=== PATIENT | male | born 1990 | race Caucasian/White ===

== ENCOUNTER 2016-09-29 18:25 | Emergency (ER) | payer OTHER ==
[~2016-09-29] VITALS: Ht 170.2 cm; Wt 80.0 kg
[~2016-09-29 18:25] MED LIST: ADDE30XR PO; ALPR2TAB3 PO
[2016-09-29 18:27] VITALS: BP 147/97; PULSE 107; RESP 14; TEMP 98.7; O2SAT 100
[2016-09-29] MEDS ORDERED: ALPR1TAB3 PO (20:45)
[2016-09-29 20:52] VITALS: BP 149/88; PULSE 87; RESP 14; O2SAT 100
--- NOTE | 2016-09-29 20:56 | PD ---
HPI Chief Complaint: Eye Problems/Injury Time Seen by Provider: 20:44 Travel History International Travel<30 days: No Contact w/Intl Traveler<30days: No Traveled to known affect area: No History of Present Illness HPI This is a 26 year old male who presents to the emergency department having had about 4 days of burning, swelling and some redness of his right eye, moderate severity. He went to [facility] and he was treated for conjunctivitis and he applied polymixin/trimethoprim eye drops and he saw his primary care physician because his symptoms aren't improving. The physician told him he agreed that it was likely conjunctivitis, but if he wasn't improving he should come to the emergency department. He did start him on amoxicillin which he started yesterday. He says over the past 24 hours the eye has become more painful, the eye is swollen shut and he is having trouble making out anything except lights and colors. (-) fevers or chills PFSH Past Medical History ADD: Yes Anxiety: Yes Diminished Hearing: No Gastrointestinal Disorders: Yes (IBS) Immunizations Current: Yes Tetanus Vaccination: < 5 Years Influenza Vaccination: No Past Surgical History Tympanostomy Tube: Yes Social History Alcohol Use: Yes Tobacco Use: No Substance Use: Yes Allergies-Medications (Allergen,Severity, Reaction): Coded Allergies: No Known Allergies (Verified , 10/23/14) Reported Meds & Prescriptions Reported Meds & Active Scripts Active Reported Alprazolam 1 Mg Tab 1 Mg PO Q6H PRN Adderall XR 30 mg (Amphetamine/Dextroamphetamine) 30 Mg Cap 1 Cap PO DAILY Alprazolam 2 Mg Tab 1 Mg PO Q6H PRN Review of Systems Except as stated in HPI: all other systems reviewed are Neg Physical Exam Narrative GENERAL:Well appearing, no acute distress SKIN: Warm and dry. HEAD: Atraumatic. Normocephalic. EYES: Pupils equal and round. Swelling of the eyelid and erythema of the preseptal soft tissue. Some pain with extraocular movements. Diffuse conjunctival injection with erythema and injection of the lids. No foreign body appreciated. No purulent discharge. Extraocular pressure was 12 in the left eye and 18 in the right eye. Fluoroscein exam was normal with no uptake. ENT: Moist mucous membranes. Tender lymph node preauricular on the right. NECK: Trachea midline. CARDIOVASCULAR: Regular rate and rhythm. No murmur appreciated. RESPIRATORY: Clear to auscultation. Breath sounds equal bilaterally. GASTROINTESTINAL: Abdomen soft, non-tender, nondistended. MUSCULOSKELETAL: No obvious deformities. NEUROLOGICAL: Awake and alert. No obvious cranial nerve deficits. Moving all extremities. PSYCHIATRIC: Appropriate mood and affect; insight and judgment normal. Data Data Last Documented VS Vital Signs Date Time Temp Pulse Resp B/P Pulse Ox O2 Delivery O2 Flow Rate FiO2 09/29/16 20:52 87 14 149/88 100 Room Air 09/29/16 18:27 98.7 Orders Proparacaine 0.5% Opth Soln (Alcaine 0.5 (09/29/16 21:00) Complete Blood Count With Diff (09/29/16 21:19) Basic Metabolic Panel (Bmp) (09/29/16 21:19) Ct Facial Bones W Iv Contrast (09/29/16 ) Morphine Inj (Morphine Inj) (09/29/16 21:30) Iohexol 350 Inj (Omnipaque 350 Inj) (09/29/16 21:47) Morphine Inj (Morphine Inj) (09/29/16 22:45) Labs Laboratory Tests Test 09/29/16 21:20 White Blood Count 7.4 TH/MM3 Red Blood Count 5.34 MIL/MM3 Hemoglobin 16.9 GM/DL Hematocrit 48.9 % Mean Corpuscular Volume 91.5 FL Mean Corpuscular Hemoglobin 31.6 PG Mean Corpuscular Hemoglobin 34.5 % Concent Red Cell Distribution Width 13.1 % Platelet Count 197 TH/MM3 Mean Platelet Volume 7.6 FL Neutrophils (%) (Auto) 64.4 % Lymphocytes (%) (Auto) 26.3 % Monocytes (%) (Auto) 8.5 % Eosinophils (%) (Auto) 0.5 % Basophils (%) (Auto) 0.3 % Neutrophils # (Auto) 4.7 TH/MM3 Lymphocytes # (Auto) 1.9 TH/MM3 Monocytes # (Auto) 0.6 TH/MM3 Eosinophils # (Auto) 0.0 TH/MM3 Basophils # (Auto) 0.0 TH/MM3 CBC Comment DIFF FINAL Differential Comment Sodium Level 138 MEQ/L Potassium Level 3.8 MEQ/L Chloride Level 100 MEQ/L Carbon Dioxide Level 31.2 MEQ/L Anion Gap 7 MEQ/L Blood Urea Nitrogen 16 MG/DL Creatinine 1.39 MG/DL Estimat Glomerular Filtration 61 ML/MIN Rate Random Glucose 87 MG/DL Calcium Level 9.0 MG/DL MDM Medical Decision Making Medical Screen Exam Complete: Yes Emergency Medical Condition: Yes Interpretation(s) Mild tachycardia CT face: Soft tissue swelling in the right orbital preseptal area Differential Diagnosis Viral conjunctivitis, bacterial conjunctivitis, uveitis, scleritis, preseptal cellulitis, orbital cellulitis Narrative Course This is a 26-year-old male who presents to the emergency department with pain in his right eye and blurry vision that is been going on for 4 days, worsening despite topical and oral antibiotic therapy. Given pain with extraocular movements in his visual complaints, I obtained a CT which is negative for orbital cellulitis. Patient does have poor vision in the right eye than in the left and has diffuse injection concerning for possible uveitis. I think patient requires urgent outpatient ophthalmology consultation. Diagnosis Primary Impression: Eye pain Qualified Code: H57.11 - Eye pain, right Referrals: Charlene Washington MD Additional Instructions: If you develop fevers, chills, more swelling in your face, blurry vision or worsening pain return to the emergency department. Follow up with Dr. Washington tomorrow without fail. Med/Other Pt SpecificInfo: No Change to Meds Disposition: 01 DISCHARGE HOME Condition: Stable Frida Heaton MD Sep 29, 2016 20:56
[2016-09-29] MEDS ORDERED: PROPARACAINE HCL 0.5% OPHT SOLN 15 ML BTL RIGHT EYE ONE (21:00)
[2016-09-29] MEDS ORDERED: MORPHINE SULFATE 8 MG/ML INJ IV PUSH ONE (21:30)
[2016-09-29] MEDS ORDERED: IOHEXOL 350 MG/ML 10 ML VIAL (for RAD DIAG) IV ONE (21:47)
--- NOTE | 2016-09-29 22:07 | RADRPT ---
EXAM DATE/TIME: 09/29/2016 21:39 [facility] COMPARISON: No previous studies available for comparison. INDICATIONS : Right orbital swelling for four days. Evaluate for cellulitis. IV CONTRAST: 75 cc Omnipaque 350 (iohexol) IV RADIATION DOSE: 10.45 CTDIvol (mGy) MEDICAL HISTORY : None SURGICAL HISTORY : None. ENCOUNTER: Initial ACUITY: 4 - 6 days PAIN SCALE: 4/10 LOCATION: Right orbit TECHNIQUE: Volumetric scanning of the facial bones was performed. Using automated exposure control and adjustme nt of the mA and/or kV according to patient size, radiation dose was kept as low as reasonably achiev able to obtain optimal diagnostic quality images. FINDINGS: ORBITS: The orbital and infraorbital osseous structures are intact. There some mild soft tissue swelling in t he preseptal right orbit. No post septal inflammatory changes or retro-bulbar abnormalities are ident ified. NASAL BONE: The nasal bone and maxillary spine are intact ZYGOMATIC ARCHES: Symmetric without evidence of fracture. SINUSES: The maxillary, ethmoid and frontal sinuses are intact. No air-fluid levels seen. NASAL CAVITY: The nasal septum is intact and midline. The lacrimal ducts are intact. SOFT TISSUES: No radiopaque foreign bodies seen. No soft-tissue swelling is seen. INTRACRANIAL: No intracranial air seen. CRIBIFORM PLATE: Grossly intact. CONCLUSION: 1. Mild soft tissue swelling in the right orbit pre-septal. This is most characteristic of a mild maciej lulitis. No post septal retrobulbar abnormalities. No abnormal enhancing lesions. Mark Ray MD on September 29, 2016 at 22:02 Board Certified Radiologist. This report was verified electronically.
[2016-09-29 22:19] LABS: AUTOMATED NEUTROPHIL # 4.7 TH/MM3 (1.8-7.7); BASOPHIL % 0.3 % (0.0-2.0); EOSINOPHIL % 0.5 % (0.0-4.0); HEMATOCRIT 48.9 % (39.0-51.0); HEMO FLAGS DIFF FINAL; LYMPH % 26.3 % (9.0-44.0); LYMPHOCYTE # 1.9 TH/MM3 (1.0-4.8); MEAN CELL VOLUME 91.5 FL (80.0-100.0); MEAN CORPUSCULAR HEMOGLOBIN 31.6 PG (27.0-34.0); MEAN CORPUSCULAR HGB CONC 34.5 % (32.0-36.0); MONO % 8.5 % (0.0-8.0); NEUT % 64.4 % (16.0-70.0); PLATELET COUNT 197 TH/MM3 (150-450); RED BLOOD COUNT 5.34 MIL/MM3 (4.50-5.90); RED CELL DISTRIBUTION WIDTH 13.1 % (11.6-17.2); WHITE BLOOD COUNT 7.4 TH/MM3 (4.0-11.0)
[2016-09-29 22:39] LABS: BICARBONATE 31.2 MEQ/L (21.0-32.0)
[2016-09-29 22:40] LABS: POTASSIUM 3.8 MEQ/L (3.5-5.1)
[2016-09-29] MEDS ORDERED: MORPHINE SULFATE 4 MG/ML INJ IV PUSH ONE (22:45)
[2016-09-29] MEDS ORDERED: HYDR-3533 PO (22:53)
[2016-09-29] MEDS ORDERED: VIGA0.5D RIGHT EYE (22:53)
[2016-09-29 22:56] VITALS: BP 131/84; PULSE 90; RESP 14; O2SAT 100
[2016-09-29] MEDS ORDERED: ONDANSETRON HCL 4 MG/2 ML VIAL IV ONE (23:00)
[2016-09-30] MEDS ORDERED: AUGM875T PO (10:37)
[2016-09-30] MEDS ORDERED: TRIMSOL RIGHT EYE (10:37)
[2016-10-04] MEDS ORDERED: PRED1SUS EACH EYE (11:11)
[2016-10-04] MEDS ORDERED: TRIMSOL EACH EYE (11:11)
[2016-10-11] MEDS ORDERED: TRIMSOL EACH EYE (09:25)
== END 2016-09-29 23:21 | disposition home or self-care (01) ==
LOC: NEPC 18:25
DX: H57.11 Ocular pain, right eye (principal)
CPT/HCPCS: 70487; 80048; 85025; 96374; 96375; 96376; 99284; J2270; J2405; Q9967

== ENCOUNTER 2017-01-14 01:07 | Emergency (ER) | payer OTHER ==
[~2017-01-14] VITALS: Ht 170.2 cm; Wt 78.0 kg
[~2017-01-14 01:07] MED LIST changes: -ADDE30XR PO; +ALPR1TAB3 PO; -ALPR2TAB3 PO; +AUGM875T PO; +HYDR-3533 PO; +PRED1SUS EACH EYE; +TRIMSOL EACH EYE
[2017-01-14 01:08] VITALS: BP 133/87; PULSE 82; RESP 20; TEMP 97.7; O2SAT 100
[2017-01-14] MEDS ORDERED: MORPHINE SULFATE 8 MG/ML INJ IV PUSH ONE (02:00)
[2017-01-14] MEDS ORDERED: ONDANSETRON HCL 4 MG/2 ML VIAL ONE (02:10)
[2017-01-14] MEDS ORDERED: ONDANSETRON HCL 4 MG/2 ML VIAL IV PUSH ONE (02:30)
--- NOTE | 2017-01-14 02:57 | RADRPT ---
EXAM DATE/TIME: 01/14/2017 02:23 [facility] COMPARISON: No previous studies available for comparison. INDICATIONS : Testicle pain. MEDICAL HISTORY : Hypercholesterolemia. Tympanostomy tube. IBS. Testicle pain. SURGICAL HISTORY : None. ENCOUNTER: Initial ACUITY: 2 days PAIN SCORE: 6/10 LOCATION: Bilateral testicles. MEASUREMENTS: RIGHT TESTICLE: 3.7 x 2.3 x 4.6cm LEFT TESTICLE: 3.2 x 2.3 x 3.7 cm FINDINGS: RIGHT TESTICLE: Homogeneous echotexture without intra or extratesticular mass. Blood flow is symmetric and within no rmal limits. No varicocele. Epididymis is within normal limits. LEFT TESTICLE: Homogeneous echotexture without intra or extratesticular mass. Blood flow is symmetric and within no rmal limits. No hydrocele or varicocele. Epididymis is within normal limits. SCROTUM: Within normal limits. CONCLUSION: Normal examination except for small hydrocele on the right. There is intact flow to both testes. Jose M Arango MD on January 14, 2017 at 2:55 Board Certified Radiologist. This report was verified electronically.
[2017-01-14 03:07] LABS: BLOOD, URINE NEG (NEG); GLUCOSE,URINE NEG (NEG); KETONE, URINE NEG (NEG); NITRITE,URINE NEG (NEG); PH, URINE 5.5 (5.0-8.5); URINE COLOR LIGHT-YELLOW (YELLW/STRAW)
[2017-01-14 03:24] LABS: COMMENT (UR) CULT NOT INDICATED; CULTURE IF INDICATED CULT NOT INDICATED
[2017-01-14] MEDS ORDERED: IBUP-232 PO (03:36)
--- NOTE | 2017-01-14 03:36 | PD ---
HPI Chief Complaint: Complaint Time Seen by Provider: 01:27 Travel History International Travel<30 days: No Contact w/Intl Traveler<30days: No Traveled to known affect area: No History of Present Illness HPI 26yo M with PMH of anxiety presents to the ED with c/o right testicular pain today. Started at 3pm and then went away. Then started 3 hours prior to arrival. Pain is sharp, radiates from right testicle to right groin. Had so nausea. Denies any fever, vomiting, chest pain, sob, abdominal pain, focal weakness or numbness. PFSH Past Medical History ADD: Yes Anxiety: Yes High Cholesterol: Yes Diminished Hearing: No Gastrointestinal Disorders: Yes (IBS) Immunizations Current: Yes Tetanus Vaccination: > 5 Years Influenza Vaccination: No Past Surgical History Tympanostomy Tube: Yes Social History Alcohol Use: Yes Tobacco Use: No Substance Use: Yes Allergies-Medications (Allergen,Severity, Reaction): Coded Allergies: No Known Allergies (Verified , 01/14/17) Reported Meds & Prescriptions Reported Meds & Active Scripts Active Reported Alprazolam 1 Mg Tab 1 Mg PO Q6H PRN Review of Systems Except as stated in HPI: all other systems reviewed are Neg Physical Exam Narrative GENERAL: 26yo M in moderate distress. SKIN: Focused skin assessment warm/dry. HEAD: Atraumatic. Normocephalic. CARDIOVASCULAR: Regular rate and rhythm. No murmur appreciated. RESPIRATORY: No accessory muscle use. Clear to auscultation. Breath sounds equal bilaterally. GASTROINTESTINAL: Abdomen soft, non-tender, nondistended. No rebound tenderness or guarding. : +TTP right testicle posterior aspect. No elevation of right testicle and no edema. No inguinal hernia palpated. No rash or penile discharge. MUSCULOSKELETAL: No obvious deformities. No clubbing. No cyanosis. No edema. NEUROLOGICAL: Awake and alert. No obvious cranial nerve deficits. Motor grossly within normal limits. Normal speech. PSYCHIATRIC: Appropriate mood and affect; insight and judgment normal.2 Data Data Last Documented VS Vital Signs Date Time Temp Pulse Resp B/P Pulse Ox O2 Delivery O2 Flow Rate FiO2 01/14/17 01:08 97.7 82 20 133/87 100 Room Air Orders Us Testicles W Doppler (01/14/17 ) Morphine Inj (Morphine Inj) (01/14/17 02:00) Urinalysis - C+S If Indicated (01/14/17 01:58) Ondansetron Inj (Zofran Inj) (01/14/17 02:10) Ondansetron Inj (Zofran Inj) (01/14/17 02:30) Labs Laboratory Tests Test 01/14/17 02:50 Urine Color LIGHT-YELLOW Urine Turbidity CLEAR Urine pH 5.5 Urine Specific [place] 1.013 Urine Protein NEG mg/dL Urine Glucose (UA) NEG mg/dL Urine Ketones NEG mg/dL Urine Occult Blood NEG Urine Nitrite NEG Urine Bilirubin NEG Urine Urobilinogen LESS THAN 2.0 MG/DL Urine Leukocyte Esterase NEG Urine RBC LESS THAN 1 /hpf Urine WBC 1 /hpf Microscopic Urinalysis Comment CULT NOT INDICATED MDM Medical Decision Making Medical Screen Exam Complete: Yes Emergency Medical Condition: Yes Interpretation(s) Last Impressions Scrotum Ultrasound 01/14/17 0000 Signed Impressions: Service Date/Time: Saturday, January 14, 2017 02:23 - CONCLUSION: Normal examination except for small hydrocele on the right. There is intact flow to both testes. Jose M Arango MD Differential Diagnosis Testicular torsion vs. epididymitis vs. UTI vs. urethritis Narrative Course 26yo M with sudden onset right testicular pain. US showed normal examination except for small hydrocele on right. Intact flow to both testes. Pt was given zofran and morphine and pain has improved. VS stable. Return precautions given. Diagnosis Primary Impression: Right testicular pain Patient Instructions: General Instructions Departure Forms: Tests/Procedures Additional Instructions: Please follow up with your PMD in 3-7 days. Return to the ED if symptoms recur or worsen. Med/Other Pt SpecificInfo: Prescription(s) given Scripts Ibuprofen 600 Mg [id number] Mg PO Q8H PRN (PAIN) #20 TAB Ref 0 Prov:Kayli Winston DO 01/14/17 Disposition: 01 DISCHARGE HOME Condition: Stable Kayli Winston January 14, 2017 03:36
== END 2017-01-14 03:50 | disposition home or self-care (01) ==
LOC: NEPE 01:07
DX: N50.811 Right testicular pain (principal); E78.00 Pure hypercholesterolemia, unspecified; K58.9 Irritable bowel syndrome, unspecified
CPT/HCPCS: 76870; 81001; 93975; 96374; 96375; 99285; J2270; J2405

== ENCOUNTER 2017-03-18 20:58 | Inpatient (IN) | payer OTHER ==
[~2017-03-18] VITALS: Ht 170.2 cm; Wt 75.0 kg
[~2017-03-18 20:58] MED LIST changes: -AUGM875T PO; -HYDR-3533 PO; +IBUP-232 PO; -PRED1SUS EACH EYE; -TRIMSOL EACH EYE
--- NOTE | 2017-03-18 21:33 | PD ---
HPI Chief Complaint: Suicidal Ideation Time Seen by Provider: 21:12 Travel History International Travel<30 days: No Contact w/Intl Traveler<30days: No History of Present Illness HPI Patient is a 26 year old male presents to the ER for evaluation of depressed mood, difficulty starting his day, polysomnia and suicidal ideation. Patient states he's "at the end of my rope" and "i was thinking about shooting myself in the head today". Patient states there are guns in the house. Arrives with his and child. States things have been very rough for him the past few weeks. Denies self injury. Denies any physical complaints, denies any chest pain, SOB, Abdominal pain, N/V/D, constipation. States is followed by Dr. Ulloa and has been prescribed adderall for ADD and takes xanax by prescription for anxiety. PFSH Past Medical History ADD: Yes Anxiety: Yes High Cholesterol: Yes Diminished Hearing: No Gastrointestinal Disorders: Yes (IBS) Immunizations Current: Yes Past Surgical History Tympanostomy Tube: Yes Social History Alcohol Use: Yes Tobacco Use: No Substance Use: Yes Allergies-Medications (Allergen,Severity, Reaction): Coded Allergies: No Known Allergies (Verified , 03/18/17) Reported Meds & Prescriptions Reported Meds & Active Scripts Active Reported Adderall (Amphetamine-Dextroamphetamine) 30 Mg Tab 30 Mg PO DAILY Avoid late evening doses. Space doses at least 4 to 6 hours if more than once/day dosing. Alprazolam 1 Mg Tab 1 Mg PO Q6H PRN Review of Systems Except as stated in HPI: all other systems reviewed are Neg Physical Exam Narrative GENERAL: WD/WN appears depressed, crying during exam. SKIN: Warm and dry. HEAD: Atraumatic. Normocephalic. EYES: Pupils equal and round. No scleral icterus. No injection or drainage. ENT: No nasal bleeding or discharge. Mucous membranes pink and moist. NECK: Trachea midline. No JVD. CARDIOVASCULAR: Regular rate and rhythm. RESPIRATORY: No accessory muscle use. Clear to auscultation. Breath sounds equal bilaterally. GASTROINTESTINAL: Abdomen soft, non-tender, nondistended. Hepatic and splenic margins not palpable. MUSCULOSKELETAL: Extremities without clubbing, cyanosis, or edema. No obvious deformities. NEUROLOGICAL: Awake and alert. No obvious cranial nerve deficits. Motor grossly within normal limits. Five out of 5 muscle strength in the arms and legs. Normal speech. PSYCHIATRIC: Endorses SI with planning. Endorses depressed mood and is certainly depressed affect. Denies HI and AVH. Data Data Last Documented VS Vital Signs Date Time Temp Pulse Resp B/P Pulse Ox O2 Delivery O2 Flow Rate FiO2 03/18/17 21:57 16 03/18/17 21:56 98.2 108 140/82 99 Orders Complete Blood Count With Diff (03/18/17 21:12) Comprehensive Metabolic Panel (03/18/17 21:12) Psych Screen (03/18/17 21:12) Drug Screen, Random Urine (03/18/17 21:12) Alcohol (Ethanol) (03/18/17 21:12) Labs Laboratory Tests Test 03/18/17 21:30 White Blood Count 7.4 TH/MM3 Red Blood Count 5.16 MIL/MM3 Hemoglobin 16.7 GM/DL Hematocrit 47.5 % Mean Corpuscular Volume 92.0 FL Mean Corpuscular Hemoglobin 32.3 PG Mean Corpuscular Hemoglobin 35.1 % Concent Red Cell Distribution Width 12.9 % Platelet Count 204 TH/MM3 Mean Platelet Volume 7.2 FL Neutrophils (%) (Auto) 67.7 % Lymphocytes (%) (Auto) 24.1 % Monocytes (%) (Auto) 5.9 % Eosinophils (%) (Auto) 0.3 % Basophils (%) (Auto) 2.0 % Neutrophils # (Auto) 5.0 TH/MM3 Lymphocytes # (Auto) 1.8 TH/MM3 Monocytes # (Auto) 0.4 TH/MM3 Eosinophils # (Auto) 0.0 TH/MM3 Basophils # (Auto) 0.1 TH/MM3 CBC Comment DIFF FINAL Differential Comment Sodium Level 138 MEQ/L Potassium Level 3.6 MEQ/L Chloride Level 103 MEQ/L Carbon Dioxide Level 28.1 MEQ/L Anion Gap 7 MEQ/L Blood Urea Nitrogen 14 MG/DL Creatinine 1.54 MG/DL Estimat Glomerular Filtration 54 ML/MIN Rate Random Glucose 97 MG/DL Calcium Level 9.2 MG/DL Total Bilirubin 0.5 MG/DL Aspartate Amino Transf 15 U/L (AST/SGOT) Alanine Aminotransferase 24 U/L (ALT/SGPT) Alkaline Phosphatase 99 U/L Total Protein 7.5 GM/DL Albumin 4.2 GM/DL Urine Opiates Screen NEG Urine Barbiturates Screen NEG Urine Amphetamines Screen POS Urine Benzodiazepines Screen POS Urine Cocaine Screen NEG Urine Cannabinoids Screen NEG Ethyl Alcohol Level 6 MG/DL MDM Medical Decision Making Medical Screen Exam Complete: Yes Emergency Medical Condition: Yes Differential Diagnosis Suicidal ideation, depression, kari, bipolar, ADD. Narrative Course Roomed in ED. No physical exam findings nor complaints that warrant additional workup. Basic screening labs ordered and patient expressed his desire to be seen by psychiatrist on voluntary basis. Patient care was discussed with Dr. Alex with patient's consent who is willing to admit patient once medically cleared. Discussed with patient admission carries with it surrendering the ability to leave the hospital of his own accord and he verbalized understanding and agreement. He signed formal admission papers. Labs return and his Cr is mildly elevated to 1.5. This can be followed up with his PCP as an outpatient and would recommend repeat labs in 7 days. He is medically stable for 2600 unit. Diagnosis Primary Impression: Suicidal ideation Additional Impression: Depression Disposition: 65 DISC TO PSYCH CARE FACILITY Condition: Stable Sanchez Hubbard MD Mar 18, 2017 21:32
[2017-03-18 21:56] VITALS: BP 140/82; PULSE 108; RESP 16; TEMP 98.2; O2SAT 99
[2017-03-18 22:01] LABS: BASOPHIL # 0.1 TH/MM3 (0-0.2); EOSINOPHIL % 0.3 % (0.0-4.0); HEMATOCRIT 47.5 % (39.0-51.0); HEMO FLAGS DIFF FINAL; LYMPH % 24.1 % (9.0-44.0); LYMPHOCYTE # 1.8 TH/MM3 (1.0-4.8); MEAN CORPUSCULAR HEMOGLOBIN 32.3 PG (27.0-34.0); MEAN CORPUSCULAR HGB CONC 35.1 % (32.0-36.0); MONO % 5.9 % (0.0-8.0); NEUT % 67.7 % (16.0-70.0); PLATELET COUNT 204 TH/MM3 (150-450); RED BLOOD COUNT 5.16 MIL/MM3 (4.50-5.90); RED CELL DISTRIBUTION WIDTH 12.9 % (11.6-17.2); WHITE BLOOD COUNT 7.4 TH/MM3 (4.0-11.0)
[2017-03-18] MEDS ORDERED: ADDE30TA PO (22:01)
[2017-03-18 22:06] LABS: AMPHETAMINE, URINE POS (NEG); BARBITURATES, URINE NEG (NEG); COCAINE, URINE NEG (NEG)
[2017-03-18 22:14] LABS: ALT (GPT) 24 U/L (12-78); ANION GAP 7 MEQ/L (5-15); AST (GOT) 15 U/L (15-37); BICARBONATE 28.1 MEQ/L (21.0-32.0); BLOOD UREA NITROGEN 14 MG/DL (7-18); CHLORIDE 103 MEQ/L (98-107); GLOMERULAR FILTRATION RATE 54 ML/MIN (>89); POTASSIUM 3.6 MEQ/L (3.5-5.1); SODIUM (NA) 138 MEQ/L (136-145)
[2017-03-18 22:17] LABS: ALKALINE PHOSPHATASE 99 U/L (45-117); TOTAL BILIRUBIN ADULT 0.5 MG/DL (0.2-1.0)
[2017-03-18] MEDS ORDERED: LORazepam 1 MG TAB PO ONE (22:45)
[2017-03-18 23:13] VITALS: BP 126/72
[2017-03-19] MEDS ORDERED: diphenhydrAMINE HCL 50 MG CAP PO PRN ×2 (00:45→09:00)
[2017-03-19] MEDS ORDERED: diphenhydrAMINE HCL 50 MG/ML VIAL IM PRN (00:45)
[2017-03-19] MEDS ORDERED: MAGNESIUM HYDROXIDE SUSP 30 ML CUP PO PRN ×2 (00:45→09:00)
[2017-03-19] MEDS ORDERED: hydrOXYzine HCL 50 MG TAB PO PRN ×2 (00:45→09:00)
[2017-03-19] MEDS ORDERED: ACETAMINOPHEN 325 MG TAB PO PRN ×2 (00:45→09:00)
[2017-03-19] MEDS ORDERED: ALUMINUM/MAGNESIUM/SIMETH 30 ML CUP PO PRN ×2 (00:45→09:00)
[2017-03-19 00:51] VITALS: BP 146/87; PULSE 100; RESP 17; TEMP 98.1; O2SAT 100
[2017-03-19 06:02] VITALS: BP 105/67; PULSE 101; RESP 16; TEMP 97.5; O2SAT 96
[2017-03-19] MEDS ORDERED: ALPRAZolam 0.25 MG TAB PO PRN (08:45)
[2017-03-19] MEDS: NICOTINE 21 MG/24 HR PATCH T-DERMAL SCH (09:00)
[2017-03-19] MEDS ORDERED: DEXTROAMPHETAMINE/AMPHETAMINE 30 MG TAB PO SCH (09:00)
--- NOTE | 2017-03-19 09:18 | HHI.HP ---
Provisional Diagnosis Admission Date Mar 18, 2017 at 23:40 [place] I. 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 Express and informed consent means consent voluntarily given in writing, by a competent person, after sufficient explanation and disclosure of the subject matter involved to enable the person to make a knowing and willful decision without any element of force, fraud, deceit, duress, or other form of constraint or coercion. This person is 18 years of age or older, is not now known to be incompetent to consent to treatment with a guardian advocate, and does not have a health care surrogate or proxy currently making medical treatment decisions. I have found this person to be one of the following: [xxx] Competent to provide express and informed consent, as defined above, for voluntary admission to this facility and is competent to provide express and informed consent for treatment. He/she has the consistent capacity to make well reasoned, willful, and knowing decisions concerning his or her medical or mental health treatment. The person fully and consistently understands the purpose of the admission for examination/placement and is fully capable of personally exercising all rights assured under [place] Incompetent to provide express and informed consent to voluntary admission, and this is incompetent to provide express and informed consent to treatment. The person must be transferred to involuntary status and a petition for a guardian advocate filed with the Circuit Court. [] Refusing to provide express and informed consent to voluntary admission but is competent to provide express and informed consent for treatment. The person must be discharged or transferred to involuntary status. Form shall be completed within 24 hours of a person's arrival at the receiving facility and filed in the clinical record of each person: 1. Admitted on a voluntary basis 2. Permitted to provide express and informed consent to his/her own treatment 3. Allowed to transfer from involuntary to voluntary status 4. Prior to permitting a person to consent to his or her own treatment after having been previously found incompetent to consent to treatment. 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 Because the emergency department voluntarily with his given the history of increased depression. This is increasing over the past month or so. He has had sleep disturbance, crying spells, depression with isolation, decreased energy, decreased concentration and attention. He is vague about any perceptual abnormalities though denies any significant auditory or visual hallucinations. Has been increasing suicidal ideation with the intent to use one of his guns. He has since had all his firearms removed from his house. As a specimen processor he is seen significant trauma including a small child dying in his arm. Along with multiple other traumatic deaths in situations. This is led to some nightmares. He has had flashbacks. He has had a version responses to local situations in places. Of interest he did have an episode depression while in college he did see Dr. Radha Jolly at that time. He has in the past had a trial of Cymbalta by his primary care physician that his led to some potency issues and also a psychotic type episode with vague auditory hallucinations that disappeared when he discontinued the Cymbalta At the present time patient sees Dr. Jose M mejia. He is prescribed Adderall for long- standing diagnosis of attention deficit disorder that goes back to childhood. And small dose of Xanax as needed for anxiety. Patient states she's been compliant cooperative with his medication and his appointments. He does deny any prior suicidal ideation or intent. He denies any other recent drug use he states he only has infrequent beer. He lives with his was also soft boarder specimen processor, and his daughter. He states they have a good leveling relationship. Patient also states there is mental health issues in his family of origin along with some history of alcohol abuse in the family of origin. He denies any physical or sexual abuse. Denies any significant medical problems except irritable bowel syndrome. We did discuss medications. We'll set the patient Zoloft 25 mg daily. We'll continue his Adderall and his Xanax. I also recommended patient start some individual counseling. He does need to process the stress that he is under. This time is able contracted to no harm. The severe fairly short stay and he can return to his family and was job Review of Systems Constitutional: DENIES: Diaphoretic episodes, Fatigue, Fever, Weight gain, Weight loss, Chills, Dizziness, Change in appetite, Night Sweats Endocrine: DENIES: Heat/cold intolerance, Polydipsia, Polyuria, Polyphagia Eyes: DENIES: Blurred vision, Diplopia, Eye inflammation, Eye pain, Vision loss , Photosensitivity, Double Vision Ears, nose, mouth, throat: DENIES: Tinnitus, Hearing loss, Vertigo, Nasal discharge, Oral lesions, Throat pain, Hoarseness, Ear Pain, Running Nose, Epistaxis, Sinus Pain, Toothache, Odynophagia Respiratory: DENIES: Apneas, Cough, Snoring, Wheezing, Hemoptysis, Sputum production, Shortness of breath Cardiovascular: DENIES: Chest pain, Palpitations, Syncope, Dyspnea on Exertion , PND, Lower Extremity Edema, Orthopnea, Claudication Gastrointestinal: DENIES: Abdominal pain, Black stools, Bloody stools, Constipation, Diarrhea, Nausea, Vomiting, Difficulty Swallowing, Anorexia Musculoskeletal: DENIES: Joint pain, Muscle aches, Stiffness, Joint Swelling, Back pain, Neck pain Integumentary: DENIES: Abnormal pigmentation, Nail changes, Pruritus, Rash Hematologic/lymphatic: DENIES: Bruising, Lymphadenopathy Immunologic/allergic: DENIES: Eczema, Urticaria Neurologic: DENIES: Abnormal gait, Headache, Localized weakness, Paresthesias, Seizures, Speech Problems, Tremor, Poor Balance Psychiatric: COMPLAINS OF: Anxiety, Depression, Suicidal Ideation Past Psych History Psychological trauma history Patient experienced multiple severe traumatic episodes related to his employment Violence risk - others (6 mos) Below Violence risk - self (6 mos) Moderate Substance Abuse History Drugs/Alcohol past 12 months Denies Past Family Social History Coded Allergies: No Known Allergies (Verified , 03/18/17) Past Medical History History of IBS Reported Medications Amphetamine-Dextroamphetamine (Adderall)30 Mg Tab30 Mg PO DAILY #30 TAB Ref 0 Avoid late evening doses. Space doses at least 4 to 6 hours if more than once/day dosing. 03/18/17 Alprazolam 1 Mg Tab1 Mg PO Q6H PRN (ANXIETY) Ref 0 09/29/16 Discontinued Scripts Ibuprofen 600 Mg [id number] Mg PO Q8H PRN (PAIN) #20 TAB Ref 0 Prov:Kayli Winston DO 01/14/17 Current Medications Medications (Trade) Dose Ordered Sig/Agusto Route Start Time Stop Time Status Last Admin (Atarax) 50 mg Q6H PRN PO 03/19/17 00:45 (Benadryl) 50 mg Q6H PRN PO 03/19/17 00:45 (Benadryl Inj) 50 mg Q6H PRN IM 03/19/17 00:45 (Tylenol) 650 mg Q4H PRN PO 03/19/17 00:45 (Milk Of Magnesia Liq) 30 ml DAILY PRN PO 03/19/17 00:45 (Mag-Al Plus Susp Liq) 30 ml Q6H PRN PO 03/19/17 00:45 (Habitrol 21 Mg Patch.24 Hr) 1 patch DAILY T-DERMAL 03/19/17 09:00 Miscellaneous Information 1 HS T-DERMAL 03/19/17 21:00 (Adderall) 30 mg DAILY PO 03/19/17 09:00 UNV (Xanax) 0.25 mg BID PRN PO 03/19/17 08:45 UNV Family History Patient states some mental health history and alcohol use and family of origin Social History Patient lives with and infant daughter Patient's Strengths (min. 2) Patient verbal educated cooperative Physical Exam Patient seen screened in ED exam reviewed and agreed with patient quietly in his room nurse Soraida present throughout session. He is in no acute distress, Jaylen he is in no respiratory distress. No complaints of abdominal pain. Patient moves all 4 extremities without difficulty more abnormal motor movements noted Vital Signs Vital Signs Date Time Temp Pulse Resp B/P Pulse Ox O2 Delivery O2 Flow Rate FiO2 03/19/17 06:02 97.5 101 16 105/67 96 Mental Status Examination Alert oriented thin slender balding truck of brown hair white male calm cooperative is somewhat nervous with fair eye contact Appearance Clean neatly Speech: Unremarkable Orientation: x3 Memory: Unremarkable Thought Process: Logical, Organized Thought Content: Unremarkable Language Good Fund of Knowledge Good Hallucination Type: None Attention and Concentration: Other Suicidal Ideation: Yes (has had suicidal ideation with vague intent denying at the present time) Previous Suicide Attempts: No Homicidal Ideation: No Previous Homicide Attempts: No Insight: Fair Judgment: WNL (a) Affect: Other (decrease range intensity) Mood: Sad (at times tearful) Motor Activity: Normal gait Assessment & Plan Problem List: (1) Severe recurrent major depression without psychotic features ICD Code: F33.2 (2) PTSD (post-traumatic stress disorder) ICD Code: F43.10 Assessment & Plan Estimated LOS: To 5 days if the same patient meets criteria for inpatient psychiatric hospitalization assessment stabilization medication management. We' ll start patient on Zoloft 25 mg daily continue his Adderall and Xanax. Hopefully this will be fairly short stay refer him to appropriate medication management and counseling of the community Discharge Planning The above Request HC Surrog/Guard Advoc?: No Diomedes Alex MD Mar 19, 2017 09:18
[2017-03-19] MEDS ORDERED: PILL SPLITTER OTHER PRN (09:30)
[2017-03-19] MEDS: DEXTROAMPHETAMINE/AMPHETAMINE 30 MG TAB PO SCH (10:22)
[2017-03-19 11:19] LABS: ANION GAP 8 MEQ/L (5-15); BICARBONATE 26.4 MEQ/L (21.0-32.0); BLOOD UREA NITROGEN 15 MG/DL (7-18); CHLORIDE 105 MEQ/L (98-107); GLOMERULAR FILTRATION RATE 62 ML/MIN (>89); POTASSIUM 3.6 MEQ/L (3.5-5.1); SODIUM (NA) 139 MEQ/L (136-145)
[2017-03-19 11:22] LABS: HDL CHOLESTEROL 28.9 MG/DL (40.0-60.0); LDL CHOLESTEROL 93 MG/DL (0-99)
[2017-03-19] MEDS: SERTRALINE HCL 50 MG TAB PO SCH (12:20)
[2017-03-19] MEDS: ALPRAZolam 0.5 MG TAB PO PRN ×2 (12:22→21:51)
[2017-03-19 13:33] LABS: HEMOGLOBIN A1a 1.1 %; HEMOGLOBIN A1b 0.7 %; HEMOGLOBIN Ao 86.6 %; HEMOGLOBIN F 0.9 %; HEMOGLOBIN LA1C 1.7 %; HEMOGLOBIN P3 3.2 %
[2017-03-19 18:42] VITALS: BP 137/88; PULSE 85; RESP 18; TEMP 98.1; O2SAT 99
[2017-03-19] MEDS: REMOVE OLD NICOTINE PATCH T-DERMAL SCH (21:00)
[2017-03-20 06:13] VITALS: BP 100/63; PULSE 87; RESP 18; TEMP 97.8; O2SAT 98
[2017-03-20] MEDS: DEXTROAMPHETAMINE/AMPHETAMINE 30 MG TAB PO SCH (08:58)
[2017-03-20] MEDS: SERTRALINE HCL 50 MG TAB PO SCH (08:58)
[2017-03-20] MEDS: NICOTINE 21 MG/24 HR PATCH T-DERMAL SCH (09:00)
[2017-03-20] MEDS: ALPRAZolam 0.5 MG TAB PO PRN ×2 (11:00→21:19)
--- NOTE | 2017-03-20 15:41 | HHI.PYPN ---
Subjective Remarks Pt seen and discussed with staff. He remains depressed and anxious. Compliant with zoloft and tolerating without side effects. No SI/HI Objective Alert: Yes Murray: Person, Place, Date, Situation Mood: Anxious, Depressed Affect: Restricted Memory Intact: Immediate, Recent, Remote Hallucinations: Other (none) Delusions: No Delusion Type: Other (none) Suicidal: Ideation (denies) Homicidal: Ideation (denies) Insight/Judgment limited Vitals/IOs Vital Signs Date Time Temp Pulse Resp B/P Pulse Ox O2 Delivery O2 Flow Rate FiO2 03/20/17 06:13 97.8 87 18 100/63 98 Assessment & Plan Problem List: (1) Severe recurrent major depression without psychotic features ICD Code: F33.2 (2) PTSD (post-traumatic stress disorder) ICD Code: F43.10 Assessment & Plan Continue current tx plan. Titrate sertraline. Estimated LOS: days Justification for Cont. Inpt. monitoring for safety Request HC Surrog/Guard Advoc?: Cynthia Ruelas MD Mar 20, 2017 15:41
[2017-03-20 16:55] VITALS: BP 137/98; PULSE 100; RESP 16; TEMP 97.3; O2SAT 98
[2017-03-20] MEDS: REMOVE OLD NICOTINE PATCH T-DERMAL SCH (21:00)
[2017-03-21 06:00] VITALS: BP 106/57; PULSE 65; RESP 17; TEMP 97.5; O2SAT 97
[2017-03-21] MEDS: DEXTROAMPHETAMINE/AMPHETAMINE 30 MG TAB PO SCH (08:30)
[2017-03-21] MEDS: NICOTINE 21 MG/24 HR PATCH T-DERMAL SCH (08:30)
[2017-03-21] MEDS: ALPRAZolam 0.5 MG TAB PO PRN (08:31)
[2017-03-21] MEDS ORDERED: SERTRALINE HCL 50 MG TAB PO SCH (09:00)
[2017-03-21] MEDS ORDERED: ZOLO50TA PO (10:00)
--- NOTE | 2017-03-21 10:07 | HHI.DS ---
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 Because the emergency department voluntarily with his given the history of increased depression. This is increasing over the past month or so. He has had sleep disturbance, crying spells, depression with isolation, decreased energy, decreased concentration and attention. He is vague about any perceptual abnormalities though denies any significant auditory or visual hallucinations. Has been increasing suicidal ideation with the intent to use one of his guns. He has since had all his firearms removed from his house. 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 Along with multiple other traumatic deaths in situations. This is led to some nightmares. He has had flashbacks. He has had a version responses to local situations in places. Of interest he did have an episode depression while in college he did see Dr. Radha Jolly at that time. He has in the past had a trial of Cymbalta by his primary care physician that his led to some potency issues and also a psychotic type episode with vague auditory hallucinations that disappeared when he discontinued the Cymbalta At the present time patient sees Dr. Jose M mejia. He is prescribed Adderall for long- standing diagnosis of attention deficit disorder that goes back to childhood. And small dose of Xanax as needed for anxiety. Patient states she's been compliant cooperative with his medication and his appointments. He does deny any prior suicidal ideation or intent. He denies any other recent drug use he states he only has infrequent beer. 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 He states they have a good leveling relationship. Patient also states there is mental health issues in his family of origin along with some history of alcohol abuse in the family of origin. He denies any physical or sexual abuse. Denies any significant medical problems except irritable bowel syndrome. We did discuss medications. We'll set the patient Zoloft 25 mg daily. We'll continue his Adderall and his Xanax. I also recommended patient start some individual counseling. He does need to process the stress that he is under. This time is able contracted to no harm. The severe fairly short stay and he can return to his family and was job Tobacco Use In Past 30 Days: No Tobacco Past 30 Days Alcohol Use: 2-3 Times Per Week Hospital Course Patient seen today with his , counselor Renetta, and medical student Clare, patient had good weekend slept better seems to have calm down somewhat. Tolerating the medication without difficulty. Now denies suicidality homicidality voices or visions. We did discuss follow-up treatment patient is willing to continue the medication and follow-up the community with both medication management and counseling. For now will allow him to continue his Adderall as prescribed, but recommend decreasing the Xanax to 0.5 mg twice a day when necessary will also allow him off work the rest of this week. Return to work on 03/25. Thus patient will be discharged today with Rx for Zoloft 50 mg by mouth every morning 1 month no refill. Also recommend follow- up with our outpatient support groups Results Blood Pressure 106 / 57 Vital Signs Date Time Temp Pulse Resp B/P Pulse Ox O2 Delivery O2 Flow Rate FiO2 03/21/17 06:00 97.5 65 17 106/57 97 Laboratory Tests Test 03/18/17 03/19/17 21:30 10:03 Creatinine 1.54 MG/DL 1.37 MG/DL (0.60-1.30) (0.60-1.30) Estimat Glomerular Filtration 54 ML/MIN (>89) 62 ML/MIN (>89) Rate Urine Amphetamines Screen POS (NEG) Urine Benzodiazepines Screen POS (NEG) Ethyl Alcohol Level 6 MG/DL (0-5) Triglycerides Level 192 MG/DL (42-150) HDL Cholesterol 28.9 MG/DL (40.0-60.0) Laboratory Results Test 03/19/17 10:03 Hemoglobin A1c 5.2 % (4.3-6.0) Triglycerides Level 192 MG/DL (42-150) Cholesterol Level 160 MG/DL (120-200) LDL Cholesterol 93 MG/DL (0-99) HDL Cholesterol 28.9 MG/DL (40.0-60.0) Summary of Procedures None done Pending results at discharge: No Medications # of Antipsychotic meds at D/C: 0 Approp Antipsych med options 1 - Minimum of three failed multiple trials of monotherapy. 2 - Documented plan to taper to monotherapy due to previous use of multiple meds OR cross-taper in progress at D/C. 3 - Documentation of augmentation of Clozapine. 4 - Justification other than those listed in allowable values 1-3, document here : Discharge Discharge Date: Mar 21, 2017 Discharge Diagnosis: (1) PTSD (post-traumatic stress disorder) Diagnosis: Secondary ICD Code: F43.10 (2) Severe recurrent major depression without psychotic features Diagnosis: Principal ICD Code: F33.2 Mental Status Exam at Disch Alert oriented thin slender white male, he is normal active, his mood is euthymic with good range intensity of his affect. Speech rate and rhythm are within normal limits though no formal thought disorders. No auditory or visual hallucinations. No delusions. Insight and judgment is fair cognition grossly intact Pt Condition on Discharge: Stable Discharge Disposition: Disch w/ Home Health Serv Discharge Instructions Diet Instructions: As Tolerated, No Restrictions Activities you can perform: Regular-No Restrictions Scheduled Appointment: [facility] or Dr. Jose M mejia Discharge Time > 30 minutes Discharge/Advance Care Plan Health Problems: (1) Severe recurrent major depression without psychotic features (2) PTSD (post-traumatic stress disorder) Goals to promote your health * To prevent worsening of your condition and complications * To maintain your health at the optimal level Directions to meet your goals Take your medications as prescribed Follow your dietary instruction Follow activity as directed Keep your appointments as scheduled Take your immunizations and boosters as scheduled If your symptoms worsen call your PCP, if no PCP go to Urgent Care Center or Emergency Room For 14/03 questions related to your inpatient stay or results of tests pending at discharge, please contact Dr. Diomedes Alex at Smoking is Dangerous to Your Health. Avoid second hand smoking Diomedes Alex MD Mar 21, 2017 10:07
== END 2017-03-21 12:20 | disposition home or self-care (01) | DRG 885 ==
LOC: EEVIPCON 20:58 → NEPD 20:58 → NEDA 23:40 → H260 23:49
PROVIDERS: ADMIT Psychiatry & Neurology Psychiatry; ATTEND Psychiatry & Neurology Psychiatry
DX: F33.2 Major depressive disorder, recurrent severe without psychotic features (principal); R45.851 Suicidal ideations; F43.10 Post-traumatic stress disorder, unspecified; F98.8 Other specified behavioral and emotional disorders with onset usually occurring in childhood and adolescence; F41.9 Anxiety disorder, unspecified; E78.00 Pure hypercholesterolemia, unspecified; K58.9 Irritable bowel syndrome, unspecified
CPT/HCPCS: 80048; 80053; 80061; 80307; 83036; 85025

== ENCOUNTER 2017-10-12 23:32 | Emergency (ER) | payer OTHER ==
[~2017-10-12] VITALS: Ht 177.8 cm; Wt 77.3 kg
[~2017-10-12 23:32] MED LIST changes: +ADDE30TA PO; -IBUP-232 PO; +ZOLO50TA PO
[2017-10-12 23:49] VITALS: BP 139/82; PULSE 85; RESP 14; TEMP 98.2; O2SAT 99
--- NOTE | 2017-10-13 00:07 | PD ---
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 Patient reports that the person he was lifting/transporting weight over 400 pounds. Shortly after lifting/ transporting heavy patient, my patient began to experience pain in his neck and lower back. Pain is 7 out of 10, constant, worse with movements. He denies paresthesias or motor deficits. No urinary incontinence. No direct trauma. He took 2 Aleve without relief of symptoms. PFSH Past Medical History ADD: Yes Anxiety: Yes Cardiovascular Problems: No High Cholesterol: Yes Diminished Hearing: No Gastrointestinal Disorders: Yes (IBS) GERD: Yes Musculoskeletal: No Neurologic: No Psychiatric: No Respiratory: No Immunizations Current: Yes Past Surgical History Ear Surgery: Yes Tympanostomy Tube: Yes Social History Alcohol Use: Yes (SOCIALLY) Tobacco Use: No Substance Use: No Allergies-Medications (Allergen,Severity, Reaction): Coded Allergies: No Known Allergies (Verified Adverse Reaction, Unknown, 10/12/17) Reported Meds & Prescriptions Reported Meds & Active Scripts Active Flexeril (Cyclobenzaprine HCl) 10 Mg Tab 10 Mg PO TID Hydrocodone-Acetaminophen 5-325 mg Tab 1 Tab PO Q6H PRN Zoloft (Sertraline HCl) 50 Mg Tab 50 Mg PO DAILY Reported Adderall (Amphetamine-Dextroamphetamine) 30 Mg Tab 30 Mg PO DAILY Avoid late evening doses. Space doses at least 4 to 6 hours if more than once/day dosing. Alprazolam 1 Mg Tab 1 Mg PO Q6H PRN Review of Systems Except as stated in HPI: all other systems reviewed are Neg Physical Exam Narrative GENERAL: Well-developed, well-nourished, comfortable, no apparent distress. SKIN: Focused skin assessment warm/dry. No rash. HEAD: Atraumatic. Normocephalic. EYES: Pupils equal and round. No scleral icterus. No injection or drainage. ENT: Mucous membranes pink and moist. NECK: Trachea midline. No JVD. Moderate midline cervical spine and paraspinal tenderness without step-off. CARDIOVASCULAR: Regular rate and rhythm. No murmur appreciated. RESPIRATORY: No accessory muscle use. Clear to auscultation. Breath sounds equal bilaterally. GASTROINTESTINAL: Abdomen soft, non-tender, nondistended. MUSCULOSKELETAL: No obvious deformities. No clubbing. No cyanosis. No edema. Mild midline cervical spine and lumbar spine tenderness without step-off. Moderate paraspinal lumbar and cervical spine tenderness. NEUROLOGICAL: Awake and alert. No obvious cranial nerve deficits. Motor grossly within normal limits. Normal speech. No focal deficits. PSYCHIATRIC: Appropriate mood and affect; insight and judgment normal. Data Data Last Documented VS Vital Signs Date Time Temp Pulse Resp B/P (MAP) Pulse Ox O2 Delivery O2 Flow Rate FiO2 10/12/17 23:49 98.2 85 14 139/82 (101) [address] Cerv Spine W/O Contrast (10/13/17 ) Ct Thor Spine W/O Contrast (10/13/17 ) Ct Lumb Spine W/O Contrast (10/13/17 ) Acetamin-Hydrocod 325-10 Mg ([place] 10-32 (10/13/17 00:15) Cyclobenzaprine (Flexeril) (10/13/17 00:15) Morphine Inj (Morphine Inj) (10/13/17 01:15) Ed Discharge Order (10/13/17 01:12) [facility] Medical Decision Making Medical Screen Exam Complete: Yes Emergency Medical Condition: Yes Differential Diagnosis Back strain, vertebral injury, cord compression unlikely Narrative Course At 1 am at the end of my shift the patient was signed out to JAMES Yu to follow up the CTs and disposition. Scripts Cyclobenzaprine (Flexeril) 10 Mg Tab 10 MG PO TID for Muscle Spasm, #20 TAB 0 Refills Prov: Juan C Mckee MD 10/13/17 Hydrocodone-Acetaminophen (Hydrocodone-Acetaminophen) 5-325 mg Tab 1 TAB PO Q6H Y for PAIN, #15 TAB 0 Refills Prov: Juan C Mckee MD 10/13/17 Juan C Mckee MD Oct 13, 2017 00:07
[2017-10-13] MEDS ORDERED: CYCLOBENZAPRINE HCL 10 MG TAB PO ONE (00:15)
[2017-10-13] MEDS ORDERED: ACETAMINOPHEN/HYDROcodone 325 MG/10 MG TAB PO ONE (00:15)
--- NOTE | 2017-10-13 00:50 | RADRPT ---
EXAM DATE/TIME: 10/13/2017 00:23 [place] COMPARISON: No previous studies available for comparison. INDICATIONS : Lifting injury. RADIATION DOSE: 21.33 CTDIvol (mGy) MEDICAL HISTORY : None SURGICAL HISTORY : None. ENCOUNTER: Initial ACUITY: 1 day PAIN SCALE: 8/10 LOCATION: Bilateral neck TECHNIQUE: Volumetric scanning of the cervical spine was performed. Multiplanar reconstructions i n the sagittal, coronal and oblique axial planes were performed. Using automated exposure control a nd adjustment of the mA and/or kV according to patient size, radiation dose was kept as low as reason ably achievable to obtain optimal diagnostic quality images. DICOM format image data is available e lectronically for review and comparison. FINDINGS: The sagittal reconstructions demonstrate normal alignment and normal prevertebral soft tissues. The d ens is intact and there is a normal atlantoaxial relationship. 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 The axial images demonstrate that the vertebral bodies and posterior elements are intact. The soft ti ssues are within normal limits. There is no evidence of acute fracture or malalignment. There is no e vidence of a disc protrusion. The neural foramina are patent. CONCLUSION: Negative trauma CT. There is no evidence of a disc protrusion or spinal stenosis . 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 Avery Guthrie MD on October 13, 2017 at 0:47 Board Certified Radiologist. This report was verified electronically.
--- NOTE | 2017-10-13 01:01 | RADRPT ---
EXAM DATE/TIME: 10/13/2017 00:23 [facility] COMPARISON: No previous studies available for comparison. INDICATIONS : Back pain after Lifting injury. RADIATION DOSE: 35.26 CTDIvol (mGy) MEDICAL HISTORY : None SURGICAL HISTORY : None. ENCOUNTER: Initial ACUITY: 1 day PAIN SCALE: 8/10 LOCATION: Bilateral lumbar TECHNIQUE: Volumetric scanning of the lumbar spine was performed. Multiplanar reconstructions in the sagittal, coronal and oblique axial planes were performed. Using automated exposure control and adjustment of the mA and/or kV according to patient size, radiation dose was kept as low as reasonably achievable t o obtain optimal diagnostic quality images. DICOM format image data is available electronically for review and comparison. FINDINGS: VERTEBRAE: Normal vertebral body height. Mild scoliosis. The disc spaces are preserved. ALIGNMENT: No evidence of subluxation. T12-L1: The thecal sac has a normal diameter. No evidence of disc bulge or protrusion. The neural foramina are patent bilaterally. L1-L2: The thecal sac has a normal diameter. No evidence of disc bulge or protrusion. The neural foramina are patent bilaterally. L2-L3: The thecal sac has a normal diameter. No evidence of disc bulge or protrusion. The neural foramina are patent bilaterally. L3-L4: The thecal sac has a normal diameter. No evidence of disc bulge or protrusion. The neural foramina are patent bilaterally. L4-L5: The thecal sac has a normal diameter. No evidence of disc bulge or protrusion. The neural foramina are patent bilaterally. L5-S1: The thecal sac has a normal diameter. No evidence of disc bulge or protrusion. The neural foramina are patent bilaterally. CONCLUSION: 1. No acute fracture or malalignment. There is a mild scoliosis. 2. No disc protrusion or spinal stenosis. Avery Guthrie MD on October 13, 2017 at 0:57 Board Certified Radiologist. This report was verified electronically.
--- NOTE | 2017-10-13 01:03 | RADRPT ---
EXAM DATE/TIME: 10/13/2017 00:23 [facility] COMPARISON: No previous studies available for comparison. INDICATIONS : Lifting injury. RADIATION DOSE: 35.26 CTDIvol (mGy) ; Combined studies - Thoracic Spine/Lumbar Spine MEDICAL HISTORY : None SURGICAL HISTORY : None. ENCOUNTER: Initial ACUITY: 1 day PAIN SCALE: 8/10 LOCATION: Bilateral spine TECHNIQUE: Volumetric scanning of the thoracic spine was performed. Multiplanar reconstructions in the sagittal , coronal and oblique axial planes were performed. Using automated exposure control and adjustment o f the mA and/or kV according to patient size, radiation dose was kept as low as reasonably achievable to obtain optimal diagnostic quality images. DICOM format image data is available electronically f or review and comparison. FINDINGS: The vertebral bodies of the thoracic spine are in normal alignment without evidence of subluxation. Vertebral body height is maintained. No fractures are seen. There is a mild scoliosis. T1-T2: Normal. T2-T3: The thecal sac has a normal diameter. No evidence of disc bulge or protrusion. T3-T4: The thecal sac has a normal diameter. No evidence of disc bulge or protrusion. T4-T5: The thecal sac has a normal diameter. No evidence of disc bulge or protrusion. T5-T6: The thecal sac has a normal diameter. No evidence of disc bulge or protrusion. T6-T7: The thecal sac has a normal diameter. No evidence of disc bulge or protrusion. T7-T8: The thecal sac has a normal diameter. No evidence of disc bulge or protrusion. T8-T9: The thecal sac has a normal diameter. No evidence of disc bulge or protrusion. T9-T10: The thecal sac has a normal diameter. No evidence of disc bulge or protrusion. T10-T11: The thecal sac has a normal diameter. No evidence of disc bulge or protrusion. T11-T12: The thecal sac has a normal diameter. No evidence of disc bulge or protrusion. T12-L1: The thecal sac has a normal diameter. No evidence of disc bulge or protrusion. CONCLUSION: 1. No evidence of fracture or malalignment. There is a mild scoliosis. 2. No evidence of disc protrusion. Avery Guthrie MD on October 13, 2017 at 1:00 Board Certified Radiologist. This report was verified electronically.
[2017-10-13] MEDS ORDERED: HYDR-3516 PO (01:06)
[2017-10-13] MEDS ORDERED: CYCL10TA PO (01:06)
[2017-10-13] MEDS ORDERED: MORPHINE SULFATE 2 MG/ML INJ IM ONE (01:15)
--- NOTE | 2017-10-13 01:15 | PD ---
Physical Exam Date Seen by Provider: Oct 13, 2017 Time Seen by Provider: 01:13 Data Data Last Documented VS Vital Signs Date Time Temp Pulse Resp B/P (MAP) Pulse Ox O2 Delivery O2 Flow Rate FiO2 10/12/17 23:49 98.2 85 14 139/82 (101) [address] Cerv Spine W/O Contrast (10/13/17 ) Ct Thor Spine W/O Contrast (10/13/17 ) Ct Lumb Spine W/O Contrast (10/13/17 ) Acetamin-Hydrocod 325-10 Mg ([place] 10-32 (10/13/17 00:15) Cyclobenzaprine (Flexeril) (10/13/17 00:15) Morphine Inj (Morphine Inj) (10/13/17 01:15) Ed Discharge Order (10/13/17 01:12) [facility] Medical Record Reviewed: Yes Supervised Visit with LUDWIN: Yes Interpretation(s) Last 24 hours Impressions Thoracic Spine CT 10/13/17 0000 Signed Impressions: Service Date/Time: September 00:23 - CONCLUSION: 1. No evidence of fracture or malalignment. There is a mild scoliosis. 2. No evidence of disc protrusion. Avery Guthrie MD Lumbar Spine CT 10/13/17 0000 Signed Impressions: Service Date/Time: September 00:23 - CONCLUSION: 1. No acute fracture or malalignment. There is a mild scoliosis. 2. No disc protrusion or spinal stenosis. Avery Guthrie MD Cervical Spine CT 10/13/17 0000 Signed Impressions: Service Date/Time: September 00:23 - CONCLUSION: Negative trauma CT. There is no evidence of a disc protrusion or spinal stenosis. 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 Avery Guthrie MD Differential Diagnosis MDM: High Differential diagnoses: Fracture, sprain, strain, dislocation, contusion, neurovascular injury Narrative Course CAT scan of the cervical, thoracic and lumbar spine have been performed. No acute injury. Patient has been given hydrocodone as well as a shot of morphine. He has had progressive improvement of symptoms. The patient will be given 4 days off from work and advised to recheck with workman's comp. This is back strain Diagnosis Primary Impression: acute back strain Patient Instructions: Narcotic given in the ED, General Instructions Departure Forms: Tests/Procedures, Work Release Special Instructions: No work 4 days. Additional Instruction: Rest. Ice for the next 3 days followed by heat . 4 Advil 3 times daily. Flexeril and hydrocodone. Follow-up with a primary care doctor in one week. Return to the ER for emergencies. Med/Other Pt SpecificInfo: Prescription(s) given Scripts Cyclobenzaprine (Flexeril) 10 Mg Tab 10 MG PO TID for Muscle Spasm, #20 TAB 0 Refills Prov: Juan C Mckee MD 10/13/17 Hydrocodone-Acetaminophen (Hydrocodone-Acetaminophen) 5-325 mg Tab 1 TAB PO Q6H Y for PAIN, #15 TAB 0 Refills Prov: Juan C Mckee MD 10/13/17 Disposition: 01 DISCHARGE HOME Condition: Stable Mark Ortiz Oct 13, 2017 01:15
== END 2017-10-13 01:35 | disposition home or self-care (01) ==
LOC: NEPD 23:32
DX: S39.012A Strain of muscle, fascia and tendon of lower back, initial encounter (principal); M54.2 Cervicalgia; F41.9 Anxiety disorder, unspecified; E78.00 Pure hypercholesterolemia, unspecified; K58.9 Irritable bowel syndrome, unspecified; K21.9 Gastro-esophageal reflux disease without esophagitis; X50.0XXA Overexertion from strenuous movement or load, initial encounter
CPT/HCPCS: 72125; 72128; 72131; 96372; 99283; J2270